=== PATIENT | female | born 1955 | race Two or more races ===

== ENCOUNTER 2023-06-06 19:27 | Emergency (ER) | payer OTHER ==
[~2023-06-06] VITALS: Ht 160 cm; Wt 66.3 kg
[2023-06-06 21:31] VITALS: BP 144/90; PULSE 110; RESP 18; TEMP 98.1; O2SAT 100
[2023-06-06] MEDS ORDERED: CEPH500C PO (21:42)
== END 2023-06-06 21:57 | disposition home or self-care (01) ==
LOC: ER 19:27
DX: N89.8 Other specified noninflammatory disorders of vagina (principal)